=== PATIENT | male | born 1985 | race Caucasian/White ===

== ENCOUNTER 2024-01-31 14:09 | Emergency (ER) | payer SELFPAY ==
[2024-01-31 14:18] VITALS: BP 151/100; PULSE 80; RESP 18; TEMP 37.1; O2SAT 98
[2024-01-31 14:36] VITALS: BP 151/100; PULSE 80; RESP 18; TEMP 37.1; O2SAT 98
[2024-01-31] MEDS: Ketorolac 60 MG/2 ML VIAL IM (15:38)
--- NOTE | 2024-01-31 15:43 | ED.GENADUL_ITS ---
Discharge Plan Disposition Patient Disposition: Home Condition: Stable Discharge Details Clinical Impression: Dog bite of left wrist ED Provider: Vahe Wright Home Meds and New Rx's Prescriptions: New amoxicillin-pot clavulanate 875-125 mg tablet 1 tab PO BID Qty: 20 0RF Discharge Instructions Instructions: Animal Bite (ED) Additional Instructions: Augmentin as directed. [id number] Tylenol and/or Motrin as directed for discomfort. Rest, elevate, cool compresses every 2 hours for 20 minutes. Change dressing at least daily. Wear wrist brace as needed, advance activity as tolerated. Sutures should be removed in 10 days, you may return here or any urgent care or ER a longer travels. You have told me that your tetanus status is up-to-date. You understand the risk of rabies and have declined rabies immunoglobulin and vaccine. Discharge Data Discharge Date/Time-TO BE ENTERED AT DEPARTURE: 01/31/24 17:32 HPI <STACEY Way - Last Filed: 01/31/24 18:48> General Mode of arrival: ambulatory . Date/Time Provider Initiated Documentation: 01/31/24 14:26 . Limitations to Documentation: no limitations . Information obtained by: patient . History of Present Illness 38 year old M presents to the emergency department with the chief complaint of Left wrist dog bite, described as severe, with intensity rated at 7. Quality is described as aching, and is localized to the left and upper extremity. Patient reports no radiation. Patient started experiencing this hour(s) (1.5) and it has been constant. Immobilization improves symptom(s), Movement worsens symptoms . Patient notes no other symptoms.. Patient did receive the following treatments prior to arrival, none Related Data Home Medications Medication Instructions Recorded Confirmed amoxicillin 875 mg-potassium 1 tab PO BID #20 tabs 01/31/24 clavulanate 125 mg tablet Previous Rx's Medication Instructions Recorded amoxicillin 875 mg-potassium 1 tab PO BID #20 tabs 01/31/24 clavulanate 125 mg tablet General Stated Complaint: AnimalBite PILI: 3 Review of Systems <STACEY Way - Last Filed: 01/31/24 18:48> Constitutional Constitutional: Denies fever(s) and Denies weakness Gastrointestinal Gastrointestinal: Denies nausea and Denies vomiting Musculoskeletal Musculoskeletal: Reports arthralgias, Reports joint swelling, Denies numbness, Reports stiffness and Reports tingling Integumentary/Breasts Skin/Breast: Denies rash Neurologic Neurologic: Denies numbness, Reports tingling and Denies weakness Exam <STACEY Way - Last Filed: 01/31/24 18:48> Const General: cooperative, healthy appearing, comfortable and no acute distress Orientation: alert and awake [facility] Head: normal to inspection, normocephalic and atraumatic Mouth: moist mucous membranes Eyes Conjunctivae: conjunctivae normal Neck Neck: normal visual inspection, trachea midline and supple Resp Effort & Inspection: normal respiratory effort and able to speak in complete sentences Cardio Rate: regular rate Rhythm: regular rhythm Skin General skin exam: no rashes or lesions noted Neuro General: patient alert, patient awake, moves all extremities and no focal motor deficits Cognition: normal cognition Speech: speech normal Gait: normal gait Motor: muscle tone normal throughout Sensory Exam: no sensory deficits noted Extrem General: capillary refill normal Other: Left wrist exam: Visual inspection reveals moderate swelling without erythema, ecchymosis, obvious deformity. There are 2 puncture wounds about the dorsal aspect and a single horizontal laceration approximately 3 cm in length along the volar aspect. There is a single puncture wound along the volar aspect just distal to the laceration. Along 3 bleeding is controlled. Patient is able to demonstrate limited wrist flexion extension as well as supination and pronation. Patient is able to fully extend all digits as well as make a fist. Patient able to demonstrate full abduction as well as adduction of all digits. Sensation intact in the radial, median, ulnar distribution. Normal radial pulse and brisk capillary refill. EPL and FPL function intact. The remaining aspect of the forearm and elbow unremarkable. Psych Appearance: grossly normal Mental Status: mental status grossly normal Course <STACEY Way - Last Filed: 01/31/24 18:48> Vital Signs Vital signs: Vital Signs Temperature 37.1 C 01/31/24 14:18 Pulse 80 01/31/24 14:18 Respiratory Rate 18 01/31/24 14:18 Blood Pressure 151/100 H 01/31/24 14:18 Pulse Oximetry 98 01/31/24 14:18 Temperature 37.1 C 01/31/24 14:36 Temperature Source Oral 01/31/24 14:36 Pulse 80 01/31/24 14:36 Respiratory Rate 18 01/31/24 14:36 Respiratory Effort Normal 01/31/24 14:36 Blood Pressure 151/100 H 01/31/24 14:36 Blood Pressure Position Sitting 01/31/24 14:36 Pulse Oximetry 98 01/31/24 14:36 Oxygen Delivery Method Room Air 01/31/24 14:36 Oxygen Flow Rate 0 01/31/24 14:18 Pain Level 8 01/31/24 14:18 Procedures <STACEY Way - Last Filed: 01/31/24 18:48> Laceration Laceration 1: Site: upper extremity Side (If applicable): left Size (cm): 3 Description: linear and clean Depth: simple, single layer Local Anesthetic: Lidocaine 2%, Bupivicaine 0.5%, with Epi and other anesthetic ([id number] mixture) Amount of anesthesia used (mL): 6 Pre-repair: wound explored, irrigated extensively and deep structures intact Skin layer closed with: nylon Size (cm): 4-0 Number of sutures: 3 Technique: simple, interrupted (Loose approximation) Medical Decision Making <STACEY Way - Last Filed: 01/31/24 18:48> This is a 38-year-old gentleman, [id number], traveling here from [place] for the [employer], presenting to the ER via private vehicle for left wrist dog bite injury. He reports around 1 PM, he was north of this area, unsure of the time but thinks he could have been in [place], states that there was someone pulled over on the side of the road, 2 dogs were fighting, they appear to be at least 100 pounds each and likely involve mastiff's, and he attempted to break them up. He sustained a dog bite to the left wrist. He states the dogs appeared well and the owners stated the dogs were healthy and immunizations are up-to-date. Patient states that his tetanus status is up-to-date. Unfortunately he did not get any of their contact information and has no way to contact the owners or identify the dogs. He admits to mild paresthesias about the thumb and index finger globally. Denies any other injury. Reports prior scaphoid surgery at least 10 years ago in [place]. Clinically patient appears well, nontoxic. Bleeding is controlled. No acute distress. Patient given IM Toradol as well as a dressing and to ice packs. Plan to obtain left wrist x-rays and reassess. Left wrist x-ray reveals no acute osseous findings. Surgical screw noted. 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 Discussed in length with patient and significant other my concern for rabies given the dogs cannot be identified. Patient understands risks but declines rabies immunoglobulin or vaccine. Patient has the capacity to do so. Case was also discussed with Dr. Kamara who personally evaluated the patient, please see his note. Case was then discussed with Dr. Aden, orthopedics. Neuro, vascular, tendon intact. Recommend loose approximation of the laceration, antibiotic therapy, and wrist splint for comfort. This was discussed with patient and significant other. Laceration loosely approximated. Patient given first dose of oral Augmentin and a prescription for the next 10 days. Laceration and puncture wounds were appropriately dressed and then a universal wrist splint was applied. Patient will be traveling back to [place], not sure exactly what day. Recommend returning to our ER or any urgent care or ER along his travels in 10 days for wound recheck and suture removal. Encouraged to return immediately to a healthcare facility for new or evolving symptoms. Standard discharge and return precautions were provided. Patient understands, is agreeable to this plan, and has no additional questions or concerns upon discharge. This documentation was generated using [employer]patch[employer] system, please disregard any oddities of phrase or misspellings. Quality:SDOH Health Related Social Needs: No Data to Display <Rylan Kamara MD - Last Filed: 02/24/24 09:38> Date: 01/31/24 Time: 15:48 Note: Patient seen, examined, and discussed with STACEY Wright. I agree with treatment plan as discussed/documented. I spoke with the patient and recommended rabies vaccination. Patient provided informed refusal of this recommended treatment. I reviewed xray, radiology interpretation pending. I recommend review with orthopedics. PFSH <STACEY Way - Last Filed: 01/31/24 18:48> All Active Problems (Updated 01/31/24 @ 17:[address]) Dog bite of left wrist (Acute) Social History Smoking risk assessment performed?: No
--- NOTE | 2024-01-31 15:45 | DI.RAD_ITS ---
Exam(s) XR WRIST LT COMPLETE EXAM: XR WRIST LT COMPLETE CLINICAL HISTORY: dog bite, prior fx and hardware. TECHNIQUE: 2D digital imaging was performed. COMPARISON: No exams were available for comparison FINDINGS: 3 views There is soft tissue avulsion in the distal volar lateral forearm. Some gas in the soft tissues at t his level. No radiopaque foreign body. No acute fractures. There is a screw in the proximal carpal row cross abnormal scaphoid bone which is a chronic finding. IMPRESSION: Soft tissue wound in the wrist region volar laterally. No acute osseous findings. Chronic abnormal osseous findings in the wrist which would require comparison to prior images which a re not available in our PACS DATA REPOSITORY: RADIATION DOSE DELIVERED:
[2024-01-31 15:51] VITALS: RESP 18; TEMP 37.1; O2SAT 96
[2024-01-31 17:17] VITALS: BP 151/100; PULSE 80; RESP 18; TEMP 37.1; O2SAT 96
[2024-01-31] MEDS: Bupivacaine 0.5% Pres-Free 30 ML VIAL (17:21)
[2024-01-31] MEDS: Amoxicillin 875/Clav. 125 TAB (17:31)
== END 2024-01-31 17:32 | disposition home or self-care (01) ==
PROVIDERS: Emergency Provider Physician Assistant
DX: S61.552A Open bite of left wrist, initial encounter (principal); W54.0XXA Bitten by dog, initial encounter; Y93.K9 Activity, other involving animal care; Y92.411 Interstate highway as the place of occurrence of the external cause
CPT/HCPCS: 12002; 99283; 73110; J0665; J1885